=== PATIENT | female | born 1955 | race Caucasian/White ===

== ENCOUNTER 2020-07-26 10:36 | Day surgery (SDC) | payer BC ==
--- NOTE | 2020-07-25 12:56 | NUR ---
CONFIRMED WITH DR. BROWN, PT. HAS CONTINUED COUMADIN AND HE IS AWARE.
[~2020-07-26] VITALS: Ht 167.6 cm; Wt 72.6 kg
[~2020-07-26 10:36] MED LIST: HYDROCODON-ACE1 EA10 PO; KEFLEX500 MG PO; PRUDOXIN45 GM; WARFARIN SODIUM5 MG PO
[2020-07-26 11:11] LABS: HEMATOCRIT 34.7 % (36.0-48.0); HEMOGLOBIN 10.7 g/dL (12-16); MCH 27.7 pg (26.0-34.0); MCHC 30.8 g/dL (31.0-37.0); MCV 89.9 fL (80.0-100.0); MEAN PLATELET VOLUME 9.7 fL (7.4-10.4); RBC 3.86 10x6/uL (4.00-5.40); RDW 15.3 % (11.5-14.5)
[2020-07-26 11:32] LABS: APTT 34.1 SECONDS (22.8-39.4); INR 2.03 (0.85-1.17); PROTIME 22.7 SECONDS (11.6-15.0)
[2020-07-26 11:50] VITALS: BP 141/75; Ht 167.6 cm; Wt 72.6 kg
--- NOTE | 2020-07-26 13:45 | NUR ---
1340-RECD TO ROOM FROM PACU. ALERT. IV PATENT. WOUND VAC TO R LOWER LEG, DRESSING CLEAN AND DRY. TAKING SIPS OF CLEAR LIQUIDS.
--- NOTE | 2020-07-26 14:50 | NUR ---
DISCHARGE INSTRUCTIONS REVIEWED WITH PATIENT AND SIGNIFICANT OTHER, DISCHARGED HOME VIA WHEELCHAIR TO PRIVATE VEHICLE WITH SIGNIFICANT OTHER
--- NOTE | 2020-07-27 08:42 | OP ---
PATIENT NAME: PIPE RAMOS MEDICAL RECORD: [id number] :55 LOCATION:[facility] ADMISSION DATE: SURGEON: MITESH BROWN DO DATE OF OPERATION: 07/26/2020 PROCEDURE PERFORMED: Right lower extremity hematoma evacuation with I and D and Kerecis application. PREOPERATIVE DIAGNOSIS: Right lower extremity hematoma. POSTOPERATIVE DIAGNOSIS: Right lower extremity hematoma. INDICATIONS: Ms. Ramos is a 64-year-old female who hit her right lower extremity on a trailer hitch a couple of weeks ago. She is on Coumadin and sustained a large hematoma in her right lower extremity where it is almost necrosing the skin. I saw her in clinic and told her we needed to I&D it before it got any larger and completely necrosed the skin and put some Kerecis to help her heal. She is okay with that. She is aware of the risks including infection, bleeding, damage to nerves or vessels in the area, continued pain, need for further surgery, dehiscence of the wound, and sloughing of the skin and she signed the consent. SURGEON: Mitesh Brown DO DESCRIPTION OF PROCEDURE: The patient was taken to operative suite, laid in supine position, given general anesthetic and a gram of Ancef preoperatively. The right lower extremity was then prepped and draped after she was sedated and LMA was placed. She was prepped and draped in sterile fashion. Timeout was performed, everyone was in agreement with the correct side, site, patient and procedure. I then began by making an incision over the hematoma down the center of it and pulled out with suction and curette doing a debridement at the same time of the hematoma. There was very minimal bleeding. I then irrigated with normal saline and put in Blanca powder to keep it from bleeding and then put in a Kerecis 2 x 3 cm patch and the skin surprisingly was not necrosed; however, it was quite ecchymotic, but it was viable. I then closed it with horizontal mattress sutures with 4-0 Monocryl and then put a Prevena plus VAC on. She was then awakened and taken to recovery in stable condition. BLOOD LOSS: Minimal. COMPLICATIONS: None. TRANSINT:[id number] Voice Confirmation ID: [id number] DOCUMENT ID: [id number] MITESH BROWN DO at 0842 CC: [id number] DICTATION DATE: 07/26/20 1305 PIGMENT PRESSER: 07/26/20 2227 [facility] 07/26/20 [id number] [place] [address]
== END 2020-07-26 14:50 | disposition home or self-care (01) ==
LOC: D.OPS 10:36
PROVIDERS: Anesthesiology; ATTEND Orthopaedic Surgery
DX: M65.311 Trigger thumb, right thumb (principal); S80.11XA Contusion of right lower leg, initial encounter; X58.XXXA Exposure to other specified factors, initial encounter